=== PATIENT | male | born 1985 | race Caucasian/White ===

== ENCOUNTER → 2018-05-22 | Outpatient (CLI) | payer BC | LOC: COL.RAD 08:15 | DX: R74.0 Nonspecific elevation of levels of transaminase and lactic acid dehydrogenase [LDH] (principal); R10.11 Right upper quadrant pain; R16.0 Hepatomegaly, not elsewhere classified ==

== ENCOUNTER → 2019-06-21 | Outpatient (CLI) | payer BC ==
[~2019-06-21] VITALS: Ht 182.9 cm; Wt 157.8 kg
[2019-06-21 13:17] VITALS: BP 152/99; PULSE 74
[2019-06-21 13:33] LABS: INR 1.1 (0.8-3.0); PROTHROMBIN TIME 12.5 SECONDS (9.7-12.8)
--- NOTE | 2019-06-21 13:48 | NUR ---
INSTRUCTED PT AND SPOUSE THAT THEY WOIULD BE THE ONES TO TAKESPECIMEN TO [facility] WE DO NOT HAVE A CONTRACT WITH THEM. PLANS ON TAKEING THE SPECIMEN TO [facility] DURING THE RECOVERY TIME. GIVEN ADDRESS.
[2019-06-21 14:11] VITALS: BP 118/79; PULSE 65
--- NOTE | 2019-06-21 14:11 | NUR ---
PT AMBULATED TO CT AND POSITIONED ON THE TABLE. MONIOTORING EQUIPMENT PLACED. IMAGES TAKEN AND SENT
[2019-06-21 14:15] VITALS: BP 115/73; PULSE 61
[2019-06-21 14:22] VITALS: BP 124/69; PULSE 69
[2019-06-21 14:25] VITALS: BP 127/82; PULSE 60
--- NOTE | 2019-06-21 14:25 | NUR ---
PROCEDURE COMPLETED. MONITORING EQUIPMENT DC'D. PT TAKEN TO RAD HOLDING IN WHEELCHAIR. VSS.
[2019-06-21 14:40] VITALS: BP 116/68; PULSE 74
== END ==
LOC: COL.RAD 12:55
PROVIDERS: Internal Medicine Gastroenterology
DX: K76.0 Fatty (change of) liver, not elsewhere classified (principal)
CPT/HCPCS: 27433

== ENCOUNTER → 2020-02-26 | Outpatient (CLI) | payer BC | LOC: COL.RAD 08:15 | DX: K76.0 Fatty (change of) liver, not elsewhere classified (principal) ==

== ENCOUNTER 2020-06-20 06:27 | Day surgery (SDC) | payer BC ==
[~2020-06-20] VITALS: Ht 182.9 cm; Wt 159.0 kg
[2020-06-20 07:10] VITALS: BP 141/89; PULSE 81; TEMP 97.9
[2020-06-20] MEDS ORDERED: SAXENDA6 MG/ML INJ (07:17)
--- NOTE | 2020-06-20 07:23 | NUR ---
CALL LIGHT IN REACH
[2020-06-20] MEDS ORDERED: NORCO 325 MG-51 TAB PO (08:39)
[2020-06-20 09:15] VITALS: BP 129/67; PULSE 61; TEMP 98.1
--- NOTE | 2020-06-20 09:15 | NUR ---
TO RM 7 PER CART FROM PACU. DROWSY, BUT ORIENTED X3 AND TALKING WITH STAFF. RIGHT LEG ELEVATED AND ICED ORDERED. C/O MILD PAIN. DENIES NAUSEA OR VOMITING. DRESSING CLEAN DRY AND INTACT.
[2020-06-20 09:30] VITALS: BP 120/78; PULSE 62
--- NOTE | 2020-06-20 09:30 | NUR ---
RECEIVED WATER AND TAKING SIPS.
[2020-06-20 09:45] VITALS: BP 134/73; PULSE 63
--- NOTE | 2020-06-20 09:45 | NUR ---
ENCOURAGED TO COUGH AND TAKE DEEP BREATHS. SAT INCREASED TO 94-95% RECEIVED MUFFIN AND APPLE JUICE.
[2020-06-20 10:00] VITALS: BP 138/87; PULSE 79
--- NOTE | 2020-06-20 10:00 | NUR ---
ATE 100% AND TOLERATED WELL.C/O MILD PAIN, BUT DENIES NEED FOR PAIN MEDICATION AT THIS TIME.
--- NOTE | 2020-06-20 10:15 | NUR ---
AMBULATED TO BATHROOM USING CRUTCHES AND TOLERATING WELL. VOIDED AND AMBULATED BACK TO .
--- NOTE | 2020-06-20 10:20 | NUR ---
RECEIVED DISCHARGE INSTRUCTIONS AND VERBALIZED UNDERSTANDING. DISCONTINUED IV AND INT- CATHETER INTACT.
--- NOTE | 2020-06-20 10:30 | NUR ---
DISCHARGED PER WC BY NURSING STAFF TO PRIVATE CAR IN CARE OF HIS ALLISON.
[2020-06-20 10:31] VITALS: BP 129/67; PULSE 55; TEMP 98.1
== END 2020-06-20 11:27 | disposition home or self-care (01) ==
LOC: SDCO 06:27
DX: S83.241A Other tear of medial meniscus, current injury, right knee, initial encounter (principal); G47.33 Obstructive sleep apnea (adult) (pediatric); E66.01 Morbid (severe) obesity due to excess calories; K76.0 Fatty (change of) liver, not elsewhere classified; Z68.42 Body mass index [BMI] 45.0-49.9, adult; Z79.899 Other long term (current) drug therapy; Z20.822 Contact with and (suspected) exposure to COVID-19
CPT/HCPCS: J0690; J1100; J1885; J2405; J2704; J3010; J7120

== ENCOUNTER → 2020-09-10 | Outpatient (CLI) | payer BC ==
[~2020-09-10] MED LIST: NORCO 325 MG-51 TAB PO; SAXENDA6 MG/ML INJ
== END ==
LOC: COL.RAD 07:59
DX: K76.0 Fatty (change of) liver, not elsewhere classified (principal); R79.89 Other specified abnormal findings of blood chemistry; R74.8 Abnormal levels of other serum enzymes

== ENCOUNTER → 2021-09-10 | Outpatient (CLI) | payer BC | LOC: COL.RAD 09:31 | DX: K76.0 Fatty (change of) liver, not elsewhere classified (principal) ==